=== PATIENT | male | born 1930 | race Caucasian/White ===

== ENCOUNTER 2016-10-02 11:59 | Inpatient (IN) | payer MEDICARE, MEDICAID, OTHER ==
[~2016-10-02] VITALS: Ht 182.9 cm; Wt 74.6 kg
--- NOTE | ~2016-10-02 | DS ---
PATIENT'S NAME: ED GRAFF [facility] AGE: 86 Y [address] ROOM: [id number] [place] [id number] LOCATION: GPCU ADMIT DATE: 09/27/2016 Discharge Summary DISCHARGE DATE: 10/02/2016 FAMILY PHYSICIAN: Johnson Sheikh MD ATTENDING PHYSICIAN: Maurice Boyle DISCHARGE DIAGNOSES: 1. Aspiration pneumonia. 2. Qhuns-id-kvohlgb hypoxemic respiratory failure, secondary to aspiration pneumonia and end-stage renal disease as well as left pleural effusion. 3. Left pleural effusion. 4. Chronic anemia of unclear source. 5. Acute encephalopathy. PAST MEDICAL HISTORY: 1. History of chronic atrial fibrillation, not on long-term anticoagulation due to history of questionable GI bleeding. 2. History of chronic anemia of unclear source. 3. Chronic hypoxemic respiratory failure, on home oxygen. 4. End-stage renal disease, on hemodialysis. 5. Diabetes mellitus type 2. 6. Coronary artery disease. 7. History of COPD. 8. Hypothyroidism. DISCHARGE MEDICATIONS: 1. Fentanyl patch 25 mcg every 72 hours. 2. Morphine sulfate COUNSELING SERVICES MANAGER pump. 3. DuoNeb nebulization every 4 hours p.r.n. for shortness of breath or wheezing. 4. Compazine 25 mg per rectum every 12 hours p.r.n. for nausea. 5. Morphine sulfate 2 mg every 1 hour p.r.n. for air hunger or pain. 6. Morphine 1-2 mg every 1 hour p.r.n. subcutaneous for air hunger or pain. 7. Morphine p.o. 5 mg every 1 hour p.r.n. for air hunger or pain. 8. Ativan 0.5 mg every 2 hours IV p.r.n. for anxiety. 9. Ativan 0.5 mg every 2 hours p.r.n. p.o. for anxiety. 10. Hyoscyamine 0.125 mg sublingual every 4 hours p.r.n. for indigestion. 11. Haloperidol 1 mg subcutaneous every 1 hour p.r.n. for agitation. 12. Bisacodyl 10 mg per rectum daily p.r.n. for constipation. 13. Haloperidol 1 mg subcutaneous every 6 hours for anxiety. 14. Tylenol 650 mg per rectum every 4 hours p.r.n. for pain or fever. 15. Tylenol 650 mg p.o. every 4 hours p.r.n. pain or fever. 16. Magnesium hydroxide 30 mL p.o. everyday p.r.n. for constipation. FOLLOW UP PLAN: The patient will be transferred today to the Transitional Care Unit to continue comfort measures only care. Palliative Care will continue to follow with the patient while the patient is in the Transitional PATIENT'S NAME: ED GRAFF [facility] AGE: 86 Y [address] ROOM: [id number] [place] [id number] LOCATION: GPCU ADMIT DATE: 09/27/2016 Discharge Summary DISCHARGE DATE: 10/02/2016 FAMILY PHYSICIAN: Johnson Sheikh MD ATTENDING PHYSICIAN: [facility]. INVESTIGATIONS DURING THE HOSPITALIZATION: 1. Chest x-ray on admission show dense opacification of the entire left hemithorax, appearance is consistent with a large volume of pleural fluid in the left hemithorax with dense lung consolidation. Vascular congestion with interstitial prominence in the right lung likely reflecting interstitial edema. 2. Chest x-ray on September 27, 2016 after thoracocentesis and chest tube placement draining a large amount of left pleural fluid out. X-ray showed improvement in radiographic appearance. Left pleural drainage catheter present. Drainage of the pleural fluid from the left hemithorax with a small volume of residual pleural fluid and adjacent lung consolidation at the left lung base. Pleural thickening and fluid at the right apex. 3. CT scan of the chest on September 27, 2016 without contrast showed left pleural drainage catheter in place. Small volume of residual pleural fluid in the lower left hemithorax with adjacent lung consolidation likely reflecting residual atelectasis. Minimal anterior left pneumothorax. Loculated pleural fluid in the medial lower right hemithorax with pleural thickening and scarring at the right apex. Cardiac enlargement with pacemaker present. Vascular calcifications. 4. CT of the head without contrast on September 28, 2016, showed no acute intracranial abnormality. 5. Chest x-ray on September 29, 2016 showed no significant change. 6. Chest x-ray on September 30, 2016 showed no significant change. 7. Chest x-ray on October 01, 2016 showed stable overall radiographic appearance. Left chest tube in place with no pneumothorax. 8. Lactic acid on admission 1.2, pro-BNP 76,586 on admission. 9. CBC on admission, white blood cell 10, hemoglobin 8.6, hematocrit 28.2, MCV 100, and platelet 221. On discharge, white blood cell 10.9, hemoglobin 8.9, hematocrit 28.9, MCV 98.3, and platelet 116. 10. Chemistry on admission glucose 185, BUN 30, creatinine 3.5, sodium 141, potassium 3.6, chloride 102, CO2 30, calcium 9.0. On discharge, glucose 196, BUN 51, creatinine 5.2, sodium 136, potassium 4.8, chloride 100, CO2 25, and calcium 8.5. GFR 17 on admission and 11 on discharge. INR 1.0. Influenza screen negative. Procalcitonin 1.6. Pleural fluid study of the left pleural effusion show orange color of the pleural fluid and turbid is 4+ with 17,000 of red blood cell and 139 white blood cells with 16% of neutrophil. 11. Microbiology study of the blood culture 2 sets negative. Pleural fluid study of the Gram stain and culture showed negative. Pleural fluid for the fungal stain and culture negative. Pleural fluid for the acid-fast bacilli negative. PATIENT'S NAME: ED GRAFF [facility] AGE: 86 Y [address] ROOM: [place] [address] LOCATION: GPCU ADMIT DATE: 09/27/2016 Discharge Summary DISCHARGE DATE: 10/02/2016 FAMILY PHYSICIAN: Johnson Sheikh MD ATTENDING PHYSICIAN: Maurice Boyle CONSULTANTS INVOLVED IN CARE: 1. Palliative Care, Elena. 2. Cardiothoracic Surgery, Dr. Puckett. 3. Hospitalist Team. 4. Nephrology, Dr. Hurley. 5. Speech and Swallow. 6. PT and OT. 7. Infection Preventionist. ADMISSION HISTORY AND HOSPITAL COURSE: For complete history and physical, refer to history and physical dictated on the day of admission. In summary, this 86-year-old male who has been in the hospital multiple times before; and on the day of admission, the patient was getting his usual blood transfusion of the packed red blood cell for his history of chronic anemia of unclear source. [place] through the transfusion, the patient developed pbctf-yc-[id number] hypoxemic respiratory failure and was referred here to the emergency room for evaluation. In the emergency room, chest x-ray showed that he has a total whiteout of the left lung consistent with atelectasis and pleural effusion. The patient was admitted for the diagnosis of aspiration pneumonia, ihwhe-qd-wteismj hypoxemic respiratory failure, left pleural effusion, chronic anemia of unclear source, and acute encephalopathy. 1. Regarding his aspiration pneumonia: Initially in the emergency room Dr. Puckett from Cardiothoracic Surgery was able to put a chest tube, which drained about 2.4 L of pleural fluid out. The patient initially has partial relief of the symptoms. X-ray after the thoracocentesis also showing improvement. The patient was back down to his usual home oxygen requirement of 2 L. However, the patient still remained critically ill and the pleural fluid study did not show any bacteria, fungal, or tuberculosis. The patient was treated with broad-spectrum antibiotics initially including vancomycin due to the elevation of procalcitonin and massive left-sided pleural effusion. Over the next few days, the patient continued to decline and his condition worsened to the point where the patient started to develop a fever and unable to eat and also did not want to eat anything orally. A modified barium swallow study was initially ordered, but the patient was so weak that he could not sit up straight to perform the test. The patient's oxygen requirement also increased and the patient was experiencing a great deal of respiratory distress. The patient is a DNR/DNI; therefore, intubation is not an option here. The patient is also acutely encephalopathic therefore noninvasive positive pressure ventilation was also contraindicated. The patient was treated with the broad-spectrum antibiotics including Zosyn for the aspiration pneumonia; however, the patient still failed to improve. The patient also underwent hemodialysis; however, the patient PATIENT'S NAME: ED GRAFF [facility] AGE: 86 Y [address] ROOM: [id number] [place] [id number] LOCATION: GPCU ADMIT DATE: 09/27/2016 Discharge Summary DISCHARGE DATE: 10/02/2016 FAMILY PHYSICIAN: Johnson Sheikh MD ATTENDING PHYSICIAN: Maurice Boyle still continued to decline. At this point, family meeting took place with the patient's daughter who is the healthcare proxy and Palliative Care was also consulted. After a long family meeting including myself with the patient and the patient's daughter and also Palliative Care, Elena Madrigal, the patient was put on comfort measures only. All the questions and concerns were answered to the patient and the patient's daughter and everybody on the team agreed including the patient himself and the patient's daughter to move forward with comfort measures only due to the lack of improvement with all the aggressive treatment, Chest tube was subsequently removed. Hemodialysis were discontinued. All the aggressive medications including antibiotics were stopped. The patient was put on comfort measure only per protocol. The patient was transferred to Transitional Care Unit on October 02, 2016 to continue comfort measure only. Palliative Care will continue to follow up. 2. Regarding his jgkjz-tx-jmjzsjv hypoxemic respiratory failure: This is a combination of aspiration pneumonia on top of the left pleural effusion on top of the volume overload from end-stage renal disease. See aspiration pneumonia all the details. 3. Left pleural effusion: See aspiration pneumonia for all the details. 4. Chronic anemia: The patient has been getting periodic packed red blood cell transfusion for his history of chronic anemia of unclear cause. At this point, the patient is on comfort measures only and there will be no more blood transfusion for the patient. 5. Acute encephalopathy: The patient's encephalopathy never improved since admission and the cause is multifactorial including aspiration pneumonia, worsening jhutn-vn-onxxekw hypoxemic respiratory failure from left pleural effusion as well as associated pneumonia and his other multiple medical comorbidities including end-stage renal disease. The patient is on comfort measure only and will continue care in the Transitional Care Unit. On the day of discharge, I spent 80 minutes with the family and the patient and coordinating care with the Palliative Care and all the other consultants and all the questions and concerns were answered to the patient and the patient's daughter. I also provided compassion for the patient's daughter and the patient and the family members were very grateful for all the care provided. MD BETSEY FAGAN/katya PATIENT'S NAME: ED GRAFF [facility] AGE: 86 Y [address] ROOM: [place] [address] LOCATION: GPCU ADMIT DATE: 09/27/2016 Discharge Summary DISCHARGE DATE: 10/02/2016 FAMILY PHYSICIAN: Johnson Sheikh MD ATTENDING PHYSICIAN: Maurice Boyle /[id number] d: 10/04/16 0159 t: 10/19/16 1506, DISCHARGE SUMMARY
--- NOTE | ~2016-10-02 | DS ---
PATIENT'S NAME: ED GRAFF [facility] AGE: 86 Y [address] ROOM: [place] [address] LOCATION: [facility] ADMIT DATE: 10/02/2016 Discharge Summary DISCHARGE DATE: 10/04/2016 FAMILY PHYSICIAN: Johnson Sheikh MD ATTENDING PHYSICIAN: Bhupendra Parker DISCHARGE SUMMARY (The patient while he was on comfort measure care only). ADMITTED TO TRANSITIONAL CARE UNIT: October 02, 2016. DATE OF EXPIRATION: October 04, 2016, at 9:05 a.m. DISCHARGE DIAGNOSES ( DIAGNOSES): 1. Aspiration pneumonia, acute on chronic hypoxemic respiratory failure secondary to aspiration pneumonia and end-stage renal disease, as well as left pleural effusion. 2. Chronic anemia of unclear source. 3. Acute encephalopathy. PAST MEDICAL HISTORY: 1. History of chronic atrial fibrillation, not on anticoagulation due to history of questionable GI bleeding. 2. History of chronic anemia of unclear source. 3. History of chronic hypoxemic respiratory failure, on home oxygen. 4. End-stage renal disease, on hemodialysis. 5. Diabetes type 2. 6. Coronary artery disease. 7. History of COPD. 8. Hypothyroidism. DISCHARGE MEDICATIONS: The patient while on comfort measure. FOLLOWUP PLAN: The patient while on comfort measures. INVESTIGATION DURING THE HOSPITALIZATION: The patient while on comfort measure only. CONSULTANTS INVOLVED IN CARE: 1. Palliative Care. 2. Hospitalist Team. The patient while on comfort measure only in TCU. ADMISSION HISTORY AND HOSPITAL COURSE: For a complete history and physical and complete discharge summary, while the patient was in the progressive care unit, refer to the history and physical and discharge summary dictated by Dr. Parker on the day of admission and also on the day of discharge while he was in PATIENT'S NAME: ED GRAFF [facility] AGE: 86 Y [address] ROOM: [place] [address] LOCATION: [facility] ADMIT DATE: 10/02/2016 Discharge Summary DISCHARGE DATE: 10/04/2016 FAMILY PHYSICIAN: Johnson Sheikh MD ATTENDING PHYSICIAN: Bhupendra Parker the progressive care unit. In summary, this is an 86-year-old, male who has been in the hospital multiple times and on the day of admission, the patient was getting his usual blood transfusion of the packed red blood cells for his history of chronic anemia of unclear source. Usp through the transfusion, the patient developed acute on chronic hypoxemic respiratory failure with dyspnea and was referred to our emergency room for evaluation. In the emergency room, the patient was found to have total whiteout of the left lung consistent with atelectasis and pleural effusion. The patient underwent emergent left side chest tube placement and drained out about 2.4 L of the pleural fluid and the patient was initially feeling partially relieved in terms of his dyspnea. The patient was initially admitted to the progressive care unit for further care. During his stay in the progressive care unit, the patient's condition deteriorated despite aggressive medical care including antibiotics and chest tube oxygen support, imaging test, dialysis, and multiple consultants involved. The patient's condition deteriorated and Palliative Care was involved and spoke to the family member including the patient's daughter who is the healthcare proxy and also the patient and all agreed to move to comfort measure only. For other details, please refer to the discharge summary dictated on the day of discharge to the TCU. In the TCU, the patient continued comfort measure only and on October 04, 2016, at 9:05 a.m. MD BETSEY FAGAN/katya /[id number] d: 10/12/16 0332 t: 10/19/16 1515, DISCHARGE SUMMARY
--- NOTE | 2016-10-02 11:30 | NUR ---
Patient is transferring to TCU for comfort cares now. Spoke with patient's daughter and BIJU, they are in agreement with transfer. Support offered.
[~2016-10-02 11:59] MED LIST: ALIGN4 MG PO; AMBIEN10 MG PO; AMBIEN5 MG PO; ATARAX25 MG PO; ATARAX50 MG PO; ATIVAN 0.5MG0.5 MG PO; B COMPLETE1 EACH PO; B-COMPLEX PLUS1 EACH PO; BUSPAR5 MG PO; BYSTOLIC2.5 MG PO; BYSTOLIC5 MG PO; CARAFATE1 GM PO; CEFTRIAXONE1 GM IV; COLACE100 MG PO; CORDARONE,PACE200 MG PO; DULCOLAX10 MG R; DULCOLAX5 MG PO; DURAGESIC 12 M12 MCG TOP; DURAGESIC 12 M12 MCG TRANS; DURAGESIC 25MC25 MCG TOP; DURAGESIC 25MC25 MCG TRANS; EUCERIN TOP; FLEET133 ML R; FLOMAX0.4 MG PO; GLUCAGON/GLUCAGE1 MG SUB-Q; GLUCERNA237 ML PO; GLUCOSE4 GM PO; HEPARIN SO5000 UNIT2 SUB-Q; HEPARIN5000 UNIT/ SUB-Q; IPRAT-ALBUT 0.5-3 ML INH; LANTUS100 UNIT/1 SUB-Q; LEXAPRO20 MG PO; LIDOCAINE-PRILO30 GM TOP; LYRICA 100MG C100 MG PO; LYRICA150 MG PO; MELATONIN3 MG PO; MELATONIN5 M2 PO; MILK OF MA400 MG/5 M PO; MINERIN CREME454 GM TOP; MIRALAX17 GM PO; MIRAPEX0.25 MG PO; MULTIVITAMINS1 EAC1 PO; NORCO 5-325 MG1 TAB PO; NORCO 5-325 TA1 EACH PO; NORVASC10 MG PO; NORVASC5 MG PO; NOVOLOG100 UNIT/M SUB-Q; OXYGEN M-15 INH; OXYGEN NOSE; PREMARIN1.25 MG PO; PROAMATINE5 MG; PROAMATINE5 MG PO; PROTONIX40 MG PO; REGLAN10 MG PO; REGLAN5 MG PO; SEE COMMENTS; SKELAXIN800 MG PO; TAMIFLU30 MG PO; TEMAZEPAM15 MG PO; THERAGRAN-M1 TAB PO; TYLENOL EXTRA500 MG PO; TYLENOL325 MG PO; TYLENOL650 MG PO; VANCOMYCIN1 GM IV; VITAMIN B-121000 MCG PO; VITAMIN B-12250 MCG PO; VITAMIN C500 M1 PO; VITAMIN D1000 UNI1 PO; VITAMIN D1000 UNIT PO; VITAMIN D10000 UNIT PO; ZOFRAN4 MG PO; ZYPREXA ZYDI5 MG PO
--- NOTE | 2016-10-02 13:13 | NUR ---
D: Nursing Admission Summary from PCU to TCU I: Nursing interventions provided to support the patient's individual plan of care R: MOBILITY-- Bedrest. Family request turns and prn NUTRITION-- npo, mouth swabs SKIN/INCISIONS/WOUNDS-- dry scaley skin SELF CARES-- dependence BOWEL/BLADDER-- incontinence, no bm since admit to acute RESPIRATORY-- oxygen per nc for comfort/ family request PAIN-- prns PSYCHOSOCIAL-- haldol prn, family involved COGNITION-- sedated, restless, does not follow instruction/cues SPECIAL NEEDS-- mouth swab and turns BLEEDING-- contraindicated, end of life cares SENSORY IMPAIRMENTS/DENTAL NEEDS: TEACHING NEEDS-- INFECTION CONCERNS: RISK FOR ELOPEMENT: none NEED FOR BED/MOVEMENT ALARM: all times, restless at times, can get feet out of edge of bed DISMISSAL PLANS: Other: P: Current plan of care reviewed and updated
--- NOTE | 2016-10-02 14:21 | NUR ---
call rec'd from Dana Gupta at [facility]. [phone]. She states the family told their NH that "Delbert" was moved to TCU. She reports "Delbert" has lived at [facility] since 04-05-16, prior to that was living with his daughter. Dana reports patient has used all of his 100 medicare days. Medicare skilled days used at [facility] were 04-05-16 to 06-22-16, then again from 07-24-16 to 08-10-16. Dana states patient has medicaid as a secondary and they had obtained approval from the [employer] at [facility] on [facility] for the Level of Care requirement. Dana to fax SW the Level Of Care paperwork. CRAIG placed a call to Manuela at [facility] on Aging office to double check if another Level of Care is required for TCU/SNF. Manuela states "no", use the level of care from [facility]. Once level of care rec'd, CRAIG will fax onto billing office along with the [facility]. His managed care medicaid is through [facility] ([facility]).
--- NOTE | 2016-10-03 04:32 | NUR ---
PATIENT IS ON COMFORT CARES. MORPHINE HEMATOLOGY ONCOLOGY CONSULTANT PUMP RUNNING 1MG CONTINUOUS WITH 1MG BOLUS, 10MIN. LOCKOUT, SUB-Q BUTTERFLY IN ABD. ON 6L OXYGEN VIA NASAL CANULA FOR COMFORT. UPDATED OSCAR FROM [facility] ABOUT THE ORDER CHANGE FOR THE HEMATOLOGY ONCOLOGY CONSULTANT TO BE CONTINUOUS INSTEAD OF JUST BOLUS. TURN FOR COMFORT. ALARMS AT ALL TIMES. DID GET RESTLESS ONCE DURING THE NIGHT AND SCHEDULED HALDOL SUB-Q GIVEN WELL BOLUS GIVEN. NO BM SINCE 09-27, FAMILY/HOSPICE AWARE. INCONTINENT OF URINE. NPO, ORAL CARES WITH SWABS.
--- NOTE | 2016-10-03 11:50 | NUR ---
Significant Event: Comfort cares patient. Turning every 2h, oral cares with roundings. No vds or bms so far this shift. Aloe to dry extremeties. Morphine MAIL HANDLER ASSISTANT 09/09/09. Hospice service for psychosocial and family support; hospice aid to come once a day for cares and grooming as family wants. Follow up:
--- NOTE | 2016-10-04 02:24 | NUR ---
Significant Event:CONTINUES ON COMFORT CARES. OXYGEN ON AT 6L VIA NASAL CANULA FOR COMFORT. MORPHINE CLOTHER IN IN ABD, RUNNING AT 1MG/ML CONTINUOUS WITH 1MG BOLUS WITH 10 MIN. LOCKOUT. TURN PER PROTOCOL, EDU-CARES DONE, BARRIER CREAM APPLIED, COCCYX IS RED. ALARMS AT ALL TIMES, ORAL CARES DONE WITH TURNS. Follow up:
--- NOTE | 2016-10-04 09:46 | NUR ---
Significant Event: Patient is on comfort care. Repositioned. Oral cares done. Morphine YARN TWISTER per sub-Q site to abdomen. Oxygen for comfort. Unresposive at this time. Did moan with turn. Hospice patient. Patient has labored breathing. Levsin given. Patient at 0905. Hospice and family notified.
--- NOTE | 2016-10-04 10:59 | NUR ---
[facility] note: 1000 Hospice personnel in patient's room at the time that CDE stops in the room. At this time they report that they are awaiting the arrival of family members, as patient this a.m. CDE did pass/meet kwame Rausch on way through the hallway and encouraged her to notify [facility] staff if she is in need of emotional support or any other assistance.
== END 2016-10-04 12:00 | disposition expired | DRG 177 ==
LOC: GSNF 11:59
PROVIDERS: ADMIT Internal Medicine
PROC: 5A1D60Z (ICD-10-PCS; principal; 2016-10-02)
DX: J69.0 Pneumonitis due to inhalation of food and vomit (principal); J96.21 Acute and chronic respiratory failure with hypoxia; G93.40 Encephalopathy, unspecified; J90 Pleural effusion, not elsewhere classified; N18.6 End stage renal disease; Z51.5 Encounter for palliative care; I48.2 Chronic atrial fibrillation; J44.9 Chronic obstructive pulmonary disease, unspecified; D64.89 Other specified anemias; Z79.01 Long term (current) use of anticoagulants; E11.9 Type 2 diabetes mellitus without complications; I25.10 Atherosclerotic heart disease of native coronary artery without angina pectoris; E03.9 Hypothyroidism, unspecified; Z99.2 Dependence on renal dialysis; Z66 Do not resuscitate
CPT/HCPCS: J1630; J2270